=== PATIENT | female | born 1935 | race Caucasian/White ===

== ENCOUNTER 2017-04-26 02:23 | Inpatient (IN) | payer MEDICARE, OTHER ==
[2017-04-26] VITALS (11 sets, daily range): BP systolic 79–135; BP diastolic 34–60
[~2017-04-26] VITALS: Ht 149.8 cm; Wt 65.4 kg
--- NOTE | ~2017-04-26 | O ---
[place], [place] OPERATIVE NOTE NAME: GEOVANNA KENYON UNIT #: [id number] ROOM: 412 DOCTOR: CHANELL MCINTYRE,RADHA BIRTHDATE: [birth year] DOS: This patient is 82-year-old who has presented to Emergency Room with symptomatic tiredness and black tarry stool. I was called by ____. Dictation ends here. RADHA LUA MD CM:OPRECORD:OPERATIVE NOTE [id number] RADHA LUA MD 04/27/17 0027 interface
--- NOTE | ~2017-04-26 | O ---
[place], [place] OPERATIVE NOTE [id number] UNIT #: [id number] ROOM: 412 DOCTOR: CHANELL MCINTYRERADHA BIRTHDATE: [birth year] DOS: HISTORY OF PRESENT ILLNESS: An 82-year-old patient who has presented with chief complaint of dysphagia, not eating according to the family. The patient has ____ concern about dysphagia issues. The patient's labs and records have been reviewed. White blood cell has been 10, H and H of 11 and 33. INR 1.4. Comprehensive metabolic panel: Glucose of 15, otherwise essentially unremarkable. PAST MEDICAL HISTORY: Diabetes mellitus, hypercoagulable state for which she has been on Xarelto and she has also got a dose of Lovenox today, hypothyroidism. PAST SURGICAL HISTORY: Cholecystectomy, appendectomy and Pacemaker. SOCIAL HISTORY: Nonsmoker, nonalcohol consumer. FAMILY HISTORY: Noncontributory to the present issue. ALLERGIES: ASPIRIN and WARFARIN. MEDICATIONS: List has been reviewed. PROCEDURE: Today's procedure part of investigation is panendoscopy plus biopsy and photographic series. PREMEDICATION: Versed and Diprivan. SCOPE: Olympus forward-viewing gastroscope Q10 video. REPORT: After putting the patient in the left lateral position and after application of lubricant to the scope, the scope was introduced. Thereafter, under direct visualization, I advanced through the length of the esophagus without difficulty. Esophagus, cervical, thoracic were carefully examined. Distal esophageal ulceration was identified. Esophagus in general has benign stricture. Photographic series of the distal esophageal ulcer was obtained. Superficial biopsy obtained. A portion of the scab over the ulcer was removed for pathological diagnosis. Gastric pouch was entered. Gastritis was noticed. Duodenal bulb, second and third part within normal limits. The patient extubated, tolerated procedure well. IMPRESSION: Distal esophageal ulceration, esophageal stricture in general benign and no obstruction; however, was noticed, gastritis seen. PLAN AND DISCUSSION: We are going to add a can of Ensure 4 times a day, pureed in the diet to see if we can catch up with her nitrogen balance and protein supplementations and ulcer therapy with sucralfate and Protonix and then she is no longer on anticoagulants and Lovenox and Xarelto, then making arrangements for 1 session of balloon dilation of the esophagus minimally, because her esophagus appears to be very fragile and thin. [place], [place] OPERATIVE NOTE NAME: GEOVANNA KENYON UNIT #: [id number] ROOM: [facility] DOCTOR: CHANELL MCINTYRE,RADHA BIRTHDATE: [birth year] RADHA LUA MD CM:OPRECORD:OPERATIVE NOTE [id number] RADHA LUA MD 04/26/17 2241 interface
[2017-04-26 02:49] LABS: BASO % 0.3 % (0.0-1.0); EOS # 0.1 10*3/uL (0.0-0.4); HEMATOCRIT 34.7 % (37.0-47.0); HEMOGLOBIN 11.1 g/dl (12.0-16.0); LYMPH # 1.2 10*3/uL (1.3-4.4); LYMPH % 12.2 % (27.0-41.0); MEAN CELL VOLUME 87.4 fl (81.0-99.0); MEAN PLATELET VOLUME 8.3 fl (9.6-12.3); MONO % 9.5 % (3.0-9.0); NEUT # 7.7 10*3/uL (2.3-7.9); NEUT % 76.6 % (47.0-73.0); PLATELET COUNT AUTOMATED 216 10*3/uL (130-400); RED BLOOD COUNT 3.97 10*6/uL (4.10-5.10); RED CELL DISTRI WIDTH 15.4 % (0-14.5)
--- NOTE | 2017-04-26 02:51 | NUR ---
STATED THAT HE GAVE PT 10 UNITS OF NOVOLOG AT 0200 TONIGHT
[2017-04-26 03:00] LABS: ACT PARTIAL THROMBO TIME 26.2 SECONDS (20.8-31.5)
[2017-04-26 03:08] LABS: ALBUMIN 2.3 gm/dl (3.1-4.5); ALKALINE PHOSPHATASE 184 U/L (45-117); BUN 16 mg/dl (7-24); CHLORIDE 98 mmol/L (98-107); CREATININE 1.02 mg/dL (0.55-1.02); MAGNESIUM 1.8 mg/dL (1.5-2.1); POTASSIUM 3.8 mmol/L (3.5-5.1); SGOT/AST 16 IU/L (3-35); SGPT/ALT 17 U/L (12-78); SODIUM 134 mmol/L (136-145); TOTAL PROTEIN 7.3 gm/dL (6.4-8.2)
[2017-04-26 03:09] LABS: TROPONIN I < 0.015 ng/ml (<0.045)
[2017-04-26 03:33] LABS: BILIRUBIN NEGATIVE (NEGATIVE); BLOOD 3+ (NEGATIVE); CLARITY CLOUDY (CLEAR); COLOR YELLOW (YELLOW); GLUCOSE 1+ (NEGATIVE); KETONE NEGATIVE (NEGATIVE); LEUKO ESTERASE 3+ (NEGATIVE); NITRITE POSITIVE (NEGATIVE); PH 6.5 (5.0-9.0); SPECIFIC GRAVITY 1.015 (1.005-1.030)
[2017-04-26 03:46] LABS: BACTERIA 1+; RBC 41-50 rbc/hpf (0-2); WBC TNTC wbc/hpf (0-5)
--- NOTE | 2017-04-26 05:27 | NUR ---
PATIENT IS RESTING IN BED, PATIENT IS ALERT AND ORIENTEDX3, FAMILY MEMBER IS AT THE PATIENTS BEDSIDE. PATIENT DENIES ANY PAIN OR DISCOMFORT AT THIS TIME. ORIENTED TO ROOM AND CALL LIGHT SYSTEM EXPLAINED, SEE SHIFT ASSESSMENT.
[2017-04-26 06:23] LABS: VITAMIN D, 25-HYDROXY 32.9 ng/mL (30-100)
--- NOTE | 2017-04-26 06:50 | NUR ---
PATIENT IS SITTING UP IN BED. PATIENT VERBALIZES FEELING MUCH BETTER. PATIENT HAS HAD NO MORE SYMPTOMS OF HYPOGLYCEMIA THROUGHOUT THE NIGHT. PATIENT DENIES ANY PAIN OR DISCOMFORT AND HAS HAD NO FURTHER REQUESTS. CALL LIGHT IS WITHIN REACH, ORIENTED TO ROOM, BODY ALARM ACTIVATED. SEE SHIFT ASSESSMENT.
[2017-04-26] MEDS ORDERED: SEPTDS PO (09:26)
[2017-04-26] MEDS ORDERED: LOVASTATIN40 MG PO (09:27)
[2017-04-26] MEDS ORDERED: Percocet 325 MG1 TAB PO (09:27)
[2017-04-26] MEDS ORDERED: NOVOLOG10 ML SQ (09:27)
[2017-04-26] MEDS ORDERED: CARDIZEM120 MG PO (09:27)
[2017-04-26] MEDS ORDERED: QUESTRAN POWDE378 GM PO (09:28)
[2017-04-26] MEDS ORDERED: VITAMIN D350000 UNIT PO (09:29)
[2017-04-26] MEDS ORDERED: POTASSIUM CHLO20 ME3 PO (09:29)
[2017-04-26] MEDS ORDERED: BETIMOL5 M1 OD (09:30)
[2017-04-26] MEDS ORDERED: NOVOLOG MI100 UNIT/2 SQ (09:30)
[2017-04-26] MEDS ORDERED: SYNTHROID,LEV125 MCG PO (09:31)
--- NOTE | 2017-04-26 09:34 | NUR ---
SPOKE TO REGARDING CONSULT. ORDERS OBTAINED
[2017-04-26] MEDS ORDERED: Insulin Lispro, Reco SC (16:32)
[2017-04-26] MEDS ORDERED: PROTONIX40 MG PO (16:32)
[2017-04-26] MEDS ORDERED: BOOST237 ML PO (16:32)
[2017-04-26] MEDS ORDERED: AMINOPHYLLIN200 MG PO (16:33)
--- NOTE | 2017-04-26 19:03 | NUR ---
Discharge instructions reviewed with patient/family. Patient receptive and verbalizes understanding. Follow-up care arranged. Written instructions given to patient/family. HEPLOCK REMOVED. PRESCRIPTIONS EXPLAINED WITH DAUGHTER & PRESENT IN ROOM. PT TAKEN OFF FLOOR BY WHEELCHAIR. LUKE BERNARD
--- NOTE | 2017-04-29 09:32 | NUR ---
patient discharged to home to resume home health via [facility], received order, faxed to [facility] to resume services.
== END 2017-04-26 19:03 | disposition home or self-care (01) | DRG 871 ==
LOC: ED 02:23 → EDHOLD 03:19 → 4E 03:19
PROVIDERS: Emergency Medicine; Internal Medicine; ADMIT Internal Medicine
PROC: 0DB38ZX Excision of Lower Esophagus, Via Natural or Artificial Opening Endoscopic, Diagnostic (ICD-10-PCS; principal; 2017-04-26)
DX: A41.9 Sepsis, unspecified organism (principal); E43 Unspecified severe protein-calorie malnutrition; E11.649 Type 2 diabetes mellitus with hypoglycemia without coma; I48.0 Paroxysmal atrial fibrillation; K31.84 Gastroparesis; N39.0 Urinary tract infection, site not specified; E87.1 Hypo-osmolality and hyponatremia; E11.43 Type 2 diabetes mellitus with diabetic autonomic (poly)neuropathy; K22.10 Ulcer of esophagus without bleeding; D64.9 Anemia, unspecified; R31.9 Hematuria, unspecified; K29.70 Gastritis, unspecified, without bleeding; K22.2 Esophageal obstruction; R13.10 Dysphagia, unspecified; E03.9 Hypothyroidism, unspecified; E78.5 Hyperlipidemia, unspecified; Z95.0 Presence of cardiac pacemaker; Z90.49 Acquired absence of other specified parts of digestive tract; Z80.0 Family history of malignant neoplasm of digestive organs; Z82.49 Family history of ischemic heart disease and other diseases of the circulatory system; Z88.6 Allergy status to analgesic agent; Z88.8 Allergy status to other drugs, medicaments and biological substances; Z79.899 Other long term (current) drug therapy; Z79.4 Long term (current) use of insulin; Z68.29 Body mass index [BMI] 29.0-29.9, adult